=== PATIENT | female | born 1970 | race Hispanic/Latino ===

== ENCOUNTER 2024-09-22 00:33 | Emergency (ER) | payer BC ==
[~2024-09-22] VITALS: Ht 152.4 cm; Wt 68.0 kg
--- NOTE | 2024-09-22 00:38 | NUR ---
COVID FLU AND STREP SWABS COLLECTED AND SENT [facility] PROVIDED
--- NOTE | 2024-09-22 00:44 | NUR ---
[facility] COLLECTED AND SENT
--- NOTE | 2024-09-22 00:52 | NUR ---
REPORT TO CHARLOTTE DUONG
[2024-09-22 01:06] LABS: SARS-CoV-2, RNA, NAAT NEGATIVE SARS CoV-2 (NEGATIVE)
[2024-09-22 01:08] LABS: RAPID GROUP A STREP positive (NEGATIVE)
[2024-09-22 01:11] LABS: INFLUENZA TYPE A Negative For Type A (NEGATIVE); INFLUENZA TYPE B Negative For Type B (NEGATIVE)
[2024-09-22] MEDS ORDERED: AMOX1TAB16 PO (01:25)
[2024-09-22] MEDS ORDERED: KETO10TA2 PO (01:25)
--- NOTE | 2024-09-22 01:26 | ERN ---
General Chief Complaint: Flu Symptoms Stated Complaint: FEVER, BODYACHES Time Seen by MD: 01:09 Time Seen by Midlevel: 01:09 Source: patient History of Present Illness Initial Comments Patient is a 54-year-old female with no significant past medical history presenting to the emergency department for evaluation of flu-like symptoms that started earlier today. Symptoms consist of generalized body weakness, generalized body aches, fever, and a sore throat. Denies sick contacts. Allergies: Coded Allergies: No Known Allergies (Unverified Allergy, Unknown, 09/22/24) Home Meds Active Scripts Amoxicillin/Potassium Clav (Amox Tr-K Clv 875-125 mg Tab) 875 Mg-125 Mg Tablet, 1 EACH PO BID for 10 Days, #20 TAB 0 Refills Prov:BERNY ABRAHAM 09/22/24 Ketorolac Tromethamine (Ketorolac Tromethamine) 10 Mg Tablet, 1 TAB PO BID for pain for 5 Days, #10 TAB 0 Refills Prov:BERNY ABRAHAM 09/22/24 Past Medical History Past Medical History: Other Medical History Other: THYROID Past Surgical History: Hysterectomy ROS Dictation CONSTITUTIONAL: Negative except for HPI HEAD/FACE: Negative except for HPI EENT: Negative except for HPI RESPIRATORY: Negative except for HPI GASTROINTESTINAL/ABDOMINAL: Negative except for HPI GENITOURINARY: Negative except for HPI MUSCULOSKELETAL: Negative except for HPI INTEGUMENTARY: Negative except for HPI NEUROLOGICAL/PSYCH: Negative except for HPI HEMATOLOGIC/LYMPHATIC: Negative except for HPI All Systems Negative, Except as noted above. 13 point review of systems assessed and all negative except for above. Physical Exam Physical Exam Dictation Vital Signs reviewed General Appearance: Alert, oriented x 3, no acute distress, well developed, nourished. Head and Face: non-traumatic. Eyes: PERRL, pink conjunctivas, eyelid no trauma, anterior chamber with arcus senilis. Ears: Pinnas intact and no signs of trauma or erythema ear canals clear and no discharge TM no erythema Nose: No discharge, no bleeding. Oropharynx: Mouth normal, tongue pink, Erythema to the posterior oropharynx, no abscesses noted, mucous membrane moist Neck: Supple, non-tender, no thyromegaly, no masses, no JVD, no bruits Breast:Deferred Chest:No tenderness, no crepitus, no paradoxical movement, no retractions Lungs:Clear, well-ventilated, symmetric, no rales, no wheezing, no rhonchi, no stridor, good breath sounds bilaterally Heart: Regular rate, regular rhythm, no murmur, no gallops Vascular: no peripheral edema, Abdomen: Soft, positive bowel sounds, nondistended, no guarding, nontender, no rebound, no masses no hepatomegaly, no splenomegaly, no Pierson's sign, no hernias. Rectal: Deferred Genital: Deferred Neurological: Normal speech, motor function intact, sensory function intact Musculoskeletal: Neck nontender, full range of motion, back nontender, full range of motion, Extremities: nontender, full range of motion Skin: Color pink, dry, no turgor, no rash, no lacerations, no abrasions, no contusions. Lymphatic: Deferred Results Laboratory and Microbiology Lab and Micro Result Laboratory Tests Test 09/22/24 00:34 Influenza Type A Antigen Negative For Type A Influenza Type B Antigen Negative For Type B SARS-CoV-2, RNA, NAAT NEGATIVE SARS CoV-2 Group A Streptococcus Rapid positive (NEGATIVE) *A Labs Reviewed?: Yes MDM MDM: Differential diagnosis: Viral syndrome, upper respiratory infection, strep pharyngitis There are no social concerns with this patient. Prescription drug management Prescriptions will include: Augmentin Medical management and examination interpretation discussions were had by me with other qualified healthcare professionals as indicated for the patient's care. ED Course Orders Procedure Category Date Status Time Covid Rna Naat LAB 09/22/24 Complete 00:39 Influenza Type A & B, LAB 09/22/24 Complete Rapid 00:39 Rapid (Group A Strep) LAB 09/22/24 Complete 00:39 Ceftriaxone 1g Vial PHA 09/22/24 Complete (Rocephine 1g Inj) 01:30 Dexamethasone 4mg/Ml PHA 09/22/24 Complete 1ml Vial (Dexametha 01:30 Ibuprofen 600 Mg PHA 09/22/24 Complete Tablet (Motrin) 02:00 Current Medications Medications (Trade) Dose Ordered Sig/Yanira Route PRN Reason Start Time Stop Time Status Last Admin Dose Admin Ceftriaxone Sodium (ROCEphine 1G INJ) 1 gm ONCE ONCE IM 09/22/24 01:30 09/22/24 01:31 DC 09/22/24 01:39 Dexamethasone Sodium Phosphate (dexaMETHasone 4MG/ML 1ML VIAL) 10 mg ONCE ONCE IM 09/22/24 01:30 09/22/24 01:31 DC 09/22/24 01:39 Ibuprofen (moTRIN) 600 mg ONCE ONCE PO 09/22/24 02:00 09/22/24 02:01 DC 09/22/24 01:55 Vital Signs Date Time Temp Pulse Resp B/P (MAP) Pulse Ox O2 Delivery O2 Flow Rate FiO2 09/22/24 02:24 99.1 78 18 128/79 98 Room Air* 0 21 09/22/24 00:34 99.1 94 20 124/79 97 Room Air DX & DISP Disposition: Discharge Departure Impression: Primary Impression: Strep pharyngitis Condition: Stable Scripts Amoxicillin/Potassium Clav (Amox Tr-K Clv 875-125 mg Tab) 875 Mg-125 Mg Tablet 1 EACH PO BID for 10 Days, #20 TAB 0 Refills Prov: BERNY ABRAHAM 09/22/24 Ketorolac Tromethamine (Ketorolac Tromethamine) 10 Mg Tablet 1 TAB PO BID for pain for 5 Days, #10 TAB 0 Refills Prov: BERNY ABRAHAM 09/22/24 Referrals: SELF,REFERRAL (PCP) Time of Disposition: 01:25 I have reviewed the case, and I agree with, Diagnosis and Plan I performed the substantive portion of the visit. I have reviewed and personally made and approve the management plan that is documented in the note by myself or the RAY. I acknowledge for responsibility for the patient's management plan. BERNY ABRAHAM Sep 22, 2024 01:25
[2024-09-22] MEDS: dexaMETHasone SOD PHOSPHATE 4 MG/ML 1ML VIAL IM ONE (01:39)
[2024-09-22] MEDS: cefTRIAXone 1G VIAL IM ONE (01:39)
[2024-09-22] MEDS: ibuPROFEN 600 MG TABLET PO ONE (01:55)
[2024-09-22 02:24] VITALS: BP 128/79; PULSE 78; RESP 18; TEMP 99.2; O2SAT 98
== END 2024-09-22 02:28 | disposition home or self-care (01) ==
LOC: EDH 00:33
DX: J02.0 Streptococcal pharyngitis (principal); Z20.822 Contact with and (suspected) exposure to COVID-19; Z79.899 Other long term (current) drug therapy; Z90.710 Acquired absence of both cervix and uterus
CPT/HCPCS: 99284; 87635; 87880; 87804 ×2; 96372 ×2; J1100; J0696